=== PATIENT | male | born 1970 | race Caucasian/White ===

== ENCOUNTER 2024-01-27 11:26 | Outpatient (CLI) | payer MEDICARE, MEDICAID, SELFPAY ==
--- NOTE | 2024-01-27 11:30 | ECG_ITS ---
Test Date: 2024-01-27 11:53:01 Measurements Intervals Bruni Rate: 88 P: 65 TX: 150 QRS: 59 QRSD: 81 T: 9 QT: 319 QTc: 386 Interpretive Statements SINUS RHYTHM NONSPECIFIC T-WAVE ABNORMALITY No previous ECG available for comparison Electronically Signed On 01-27-2024 15:26:51 CDT by Luis Galloway M.D.
[2024-01-27 12:05] LABS: Basophils Absolute Auto 0.1 K/mm3 (0.0-0.1); Basophils Percent Auto 1.1 % (0.2-1.2); Eosinophils Absolute Auto 0.1 K/mm3 (0-0.3); Eosinophils Percent Auto 1.2 % (0-4.4); Hematocrit 49.6 % (42.0-52.0); Hemoglobin 16.3 g/dL (14.0-18.0); Immature Granulocyte Absolute 0.06 K/mm3 (0.00-0.031); Immature Granulocyte Percent A 0.7 % (0-0.5); Lymphocytes Absolute Auto 2.15 K/mm3 (0.9-3.2); Lymphocytes Percent Auto 25.1 % (18.3-44.2); Mean Corpuscular HGB Conc 32.9 g/dl (32-36); Mean Corpuscular Hemoglobin 29.7 pg (26-34); Mean Corpuscular Volume 90.5 fl (80-100); Mean Platelet Volume 9.9 fl (7.4-10.4); Monocytes Absolute Auto 1.1 K/mm3 (0.1-0.6); Monocytes Percent Auto 12.6 % (2.6-8.5); Neutrophils Absolute Auto 5.1 K/mm3 (1.3-6.7); Neutrophils Percent Auto 59.3 % (45.5-73.1); Platelet Count Result 252 k/mm3 (150-375); Red Blood Count 5.48 M/mm3 (4.6-6.20); Red Cell Distribution Width 11.9 % (11.5-14.5); White Blood Count 8.6 K/mm3 (4.5-10.0)
[2024-01-27 12:22] LABS: Anion Gap 9 mmol/L (4-12); Blood Urea Nitrogen 21 mg/dL (9-20); Carbon Dioxide 29 mmol/L (22-30); Chloride 101 mmol/L (98-107); Estimated Glomerular Filt Rate > 60; Glucose 102 mg/dL (65-110); Potassium 3.8 mmol/L (3.4-5.0); Sodium 139 mmol/L (137-145)
[2024-01-27 12:43] LABS: Digoxin 0.5 ng/mL (0.8-2.0)
== END 2024-01-27 11:27 | disposition home or self-care (01) ==
PROVIDERS: Anesthesiology; PCP Student in an Organized Health Care Education/Training Program; Visit Provider Surgery
DX: K40.90 Unilateral inguinal hernia, without obstruction or gangrene, not specified as recurrent (principal); I47.10 Supraventricular tachycardia, unspecified; Z51.81 Encounter for therapeutic drug level monitoring; Z79.899 Other long term (current) drug therapy
CPT/HCPCS: 36415; 80048; 80162; 85025; 86850; 86900; 86901; 93005

== ENCOUNTER 2024-02-01 02:51 | Day surgery (SDC) | payer MEDICARE, MEDICAID, SELFPAY ==
[2024-01-24 14:27] VITALS: BMI 21.9
--- NOTE | 2024-01-24 14:28 | PC.NURSE ---
Report to the Outpatient Waiting Room, entrance under the green pavilion located off [facility], at time _0600_ on date _[id number]_. Planned Procedure Time: _0730__.? Time changes happen often and if your time is changed the preop area will call you the afternoon before. - You and your visitor will be asked to self-screen and do not enter if you have any COVID symptoms. Please call surgeon if you need to reschedule. - A mask is optional within the hospital at this time. Patients may have clear liquids (water, carbonated beverages, clear teas, apple juice) until 3 hours prior to surgery with a maximum of 20 ounces. - No food from midnight until time of surgery and no smoking Take only the following medications with a SIP of water on the morning of surgery: ___None (patient only takes pills with Apple sauce) DO NOT STOP ANY OF YOUR OTHER PRESCRIPTION MEDICATIONS PRIOR TO SURGERY EXCEPT THE FOLLOWING Medications to discontinue per physician _Vitamin D3____ Date to take last gjqw____[id number] Please no make-up, nail vincentian, hairspray, perfume, deodorant, or body powder the day of surgery.? No jewelry (including any body piercings) or valuables the day of surgery, leave them at home.? Please take a shower or bath the night before, or the morning of, surgery with an antibacterial soap.? Wear comfortable, loose fitting clothing.? - Jewelry must be removed prior to entering the operating room.? Rings and piercings that are not removed may be cut off. - The hospital will not accept responsibility for valuables.? - Please leave all valuables, including medications, at home the day of surgery. If you are going home after surgery, a licensed truss driver helper must drive you home.? - NO public transportation without another adult if you receive anesthesia. - We recommend that an adult stay with you for 24 hours following discharge. - We also recommend that you do not drive, make important decision, drink alcoholic beverages, or take any drugs that were not prescribed by your health care provider for at least 24 hours after your discharge time. Follow any additional instructions given to you from your surgeon. Telephone instructions given to __Diane/mother__and asked if any additional questions and then verbalized understanding. Patient advised to call surgeon office or pre surgery nurse liaison [phone] if any additional questions.
[2024-02-01] VITALS (10 sets, daily range): BP systolic 108–164; BP diastolic 60–110; PULSE 80–107; RESP 12–20; TEMP 36–36.2; O2SAT 95–99
[2024-02-01] MEDS: LACTATED RINGERS 1,000 ML 30 ML IV CONT ×3 (06:25→10:40)
[2024-02-01] MEDS: KETOROLAC 15 MG/ML VIAL (*BKC) IV PUSH (06:30)
--- NOTE | 2024-02-01 07:10 | WPDANESEPPF ---
Anes - Initial Pre Proc Eval Procedure: Operation Date: 02/01/24 07:30 Proposed Procedures p Robotic Repair Right Inguinal Hernia with Mesh - Gustavo Saldaña MD Date/Time: 02/01/24 07:10 Surgeon: Gustavo Saldaña MD Pre Op Diagnosis: right inguinal hernia Patient Data Age: 54 Gender: M Height: 1.7 m Weight: 60.6 kg Last Vital Signs Temp 96.8 F L 02/01/24 06:10 Pulse 107 H 02/01/24 06:10 Resp 18 02/01/24 06:10 BP 132/110 H 02/01/24 06:10 Pulse Ox 99 02/01/24 06:10 O2 Del Method Room Air 02/01/24 06:10 Allergies Allergy/AdvReac Type Severity Reaction Status Date / Time alprazolam AdvReac Unknown Other Verified 02/01/24 06:36 clonazepam AdvReac Unknown Other Verified 02/01/24 06:36 Home Medications Medication Instructions Recorded Confirmed Type digoxin 125 mcg (0.125 mg) tablet 125 mcg PO DAILY 01/10/24 02/01/24 History propranolol 160 mg capsule,24 160 mg PO DAILY 01/10/24 02/01/24 History hr,extended release cholecalciferol (vitamin D3) 25 25 mcg PO DAILY 01/24/24 02/01/24 History mcg (1,000 unit) capsule (Vitamin D3) amiodarone 200 mg tablet 200 mg PO PRN PRN Palpitations 01/27/24 02/01/24 History Patient hx anesthesia problems: none Family hx anesthesia problems: none Results Review: All pre-operative results and documents have been reviewed as part of the pre-operative evaluation. [facility] Past Medical History Medical History Autistic disorder GERD (gastroesophageal reflux disease) MVP (mitral valve prolapse) Vitamin D deficiency Surgical History Surgical History History of inguinal hernia repair 2014 Dr. Saldaña Family History Family History Father Family history of malignant neoplasm Family history of lung disease Other Cerebrovascular accident Family history of allergic disorder Family history of cardiovascular disease Hypertension Social History Social History Smoking status: Never smoker Alcohol intake: never Living arrangements: with family Occupation/Education: other Additional occupation/education comments: disabled Spiritual care concerns: No Anes - Eval Final PreProcedure Day of Procedure 02/01/24 07:10 Patient weight: normal Heart: regular rate and rhythm Lungs: clear to auscultation Airway: Mallampati scale class II Neurological: alert and oriented Last oral intake: >/= 8 hours ASA classification: III Emergent: no Anesthetic plan: proceed Anesthesia type and monitoring: general ETT and standard monitoring Results Review: All pre-operative results and documents have been reviewed as part of the pre-operative evaluation. Pt on several meds for main of psvt. No cp or sob. Autism spectrum disorder. Discussed w pts mom and sister in preop area. Informed Consent: The patient's anesthetic plan and its attendant risks and benefits were discussed with the patient/family/POA. Questions were solicited and answers provided to the satisfaction of the patient/family/POA.
--- NOTE | 2024-02-01 07:17 | WPDHPUPDATE1 ---
History and Physical Update Update Date/Time: 02/01/24 07:17 History and Physical has been reviewed, including an updated exam of the patient. There are NO changes in the patient's condition. Risks, benefits, and alternatives have been discussed and questions answered. Patient agrees to proceed with procedure.
[2024-02-01] MEDS: ceFAZolin 2 GM/D5W 50 ML 2 GM/50 ML BAG IVPB (07:45)
[2024-02-01] MEDS: BUPIVACAINE/EPINEPHRINE 0.5% 50 ML VIAL 10 ML INFILTRATE (08:00)
--- NOTE | 2024-02-01 09:26 | P.OP_ITS ---
Procedure Note - Detailed Date of Procedure 02/01/24 Pre-op Diagnosis right inguinal hernia Post-op Diagnosis Same Procedure Performed Robotic laparoscopic repair right inguinal hernia with mesh Surgeon Gustavo Saldaña MD Esl Instructional Assistant Gurjit RICHTER Anesthesia General and Local Indications Patient is a 54-year-old man who has had a large bulge in the right groin for a couple of months. It is reducible but tender. He is taken to surgery now for robotic laparoscopic repair with mesh Findings Patient had both a direct and indirect hernia. The indirect hernia was larger. There was no evidence of a left inguinal hernia recurrence. Description of Procedure Patient was taken to surgery and induced into general anesthesia. The abdomen is prepped and draped. Trocars were placed in the usual fashion using initially a 5 mm applied Medical optical trocar in the left upper quadrant. The robotic trocars were then placed and the 5 mm optical trocar replaced for an 8 mm trocar. We reviewed the inguinal hernia defect and the left side as well. Mesh and suture were then placed in the abdomen. Patient was placed in 15? Trendelenburg. The robot was then brought into the field. The camera was docked and targeted. The working 2 arms were then docked and instruments were placed in position near the hernia. The surgeon went to the robotic console. A peritoneal flap was created anteriorly over the inguinal canal structures. This flap was developed broadly. On the medial aspect of the flap, dissection was carried out under the rectus muscle and down to the pubis and Arron's ligament. We dissected medially a couple of cm beyond the pubis and continued that dissection so that the medial aspect of the left rectus muscle would be covered by the mesh as well. I then went back and dissected the direct inguinal hernia. I reduced the hernia sac and freed this from the transversalis fascia which remained in the defect. I then went to the indirect hernia and carefully di ssected transversalis fibers off the anterior aspect of the hernia sac. Care was taken and the vas deferens and testicular vessels were carefully dissected away from the sac the into the sac was eventually found and carefully dissected free from the testicular structures. We dissected the sac well posterior to the inguinal canal anatomy so there would be plenty of room for mesh placement. The extra-large, 17 x 12 cm, mid right 3DMax mesh was then positioned over the inguinal canal structures, covering well the indirect and direct hernias. I sutured Arron's ligament to the lower medial aspect of the mesh with 3-0 Vicryl suture. Additional 3-0 Vicryl suture secured the mesh anteriorly. One suture was placed on the medial aspect of the inferior epigastric vessels and 1 suture was placed lateral to the inferior epigastric vessels. The mesh was in good position. I then used a 3-0 running V lock suture and closed the peritoneal flap. All looked good. The 2 needles were then retrieved. The robot was undocked after instruments were removed. CO2 was evacuated. A scrotal support was placed. Patient was awakened and taken to recovery in good condition. Sponge and needle counts were correct x2. Implants 17 x 12 cm right mid 3DMax mesh Estimated Blood Loss -5 Drains No Packing No Pathology None sent Complications None Condition Stable Disposition PACU [facility] Billing Surgery - Charge Forward: Surgery Billing (Robotic laparoscopic repair right inguinal hernia with mesh)
[2024-02-01] MEDS: oxyCODONE HCL (*CRX) 5 MG TAB IR PO (10:39)
== END 2024-02-01 12:15 | disposition home or self-care (01) ==
PROVIDERS: PCP Student in an Organized Health Care Education/Training Program; Visit Provider Surgery
PROC: 8E0Y4CZ Robotic Assisted Procedure of Lower Extremity, Percutaneous Endoscopic Approach (ICD-10-PCS; CPT 49650; principal; 2024-02-01 07:30)
DX: K40.90 Unilateral inguinal hernia, without obstruction or gangrene, not specified as recurrent (principal); G89.18 Other acute postprocedural pain; F84.0 Autistic disorder; K21.9 Gastro-esophageal reflux disease without esophagitis; E55.9 Vitamin D deficiency, unspecified; I47.10 Supraventricular tachycardia, unspecified; Z98.890 Other specified postprocedural states; Z86.79 Personal history of other diseases of the circulatory system; Z80.9 Family history of malignant neoplasm, unspecified; Z82.49 Family history of ischemic heart disease and other diseases of the circulatory system
CPT/HCPCS: 49650; S2900; A9270; C1781; J0690; J1100; J1885; J2003; J2250; J2270; J2405; J2704; J3010; J7030; J7120